=== PATIENT | male | born 1985 | race Hispanic/Latino ===

== ENCOUNTER 2019-09-02 12:20 | Outpatient (CLI) | payer OTHER ==
--- NOTE | 2019-09-02 14:15 | RAD ---
Exam:3 views left hand HISTORY: Pain. Injury 9 days ago. First metatarsal tarsal pain. COMPARISON: None FINDINGS: Subacute fracture involving the first metatarsal with mild displacement. Associated soft ti ssue swelling. No additional fractures. Joint spaces are preserved. IMPRESSION: Subacute first metatarsal fracture.
== END 2019-09-02 12:21 | disposition home or self-care (01) ==
LOC: BICRAD 12:20
PROVIDERS: ATTEND Internal Medicine
DX: M79.642 Pain in left hand (principal); S92.312A Displaced fracture of first metatarsal bone, left foot, initial encounter for closed fracture